=== PATIENT | male | born 1950 | race Caucasian/White ===

== ENCOUNTER → 2017-02-25 | Outpatient (CLI) | payer BC, OTHER ==
[~2017-02-25] MED LIST: ALLO100T PO; ASPI81TA85 PO; ATEN50TA2 PO; DYAZ37.5 PO; KETO50CA PO; PRIL20CA9 PO; PROZ40CA PO; ZOCO5TAB PO
[2017-02-25 10:13] LABS: MEAN CORPUSCULAR HEMOGLOBIN 28.2 pg (27.0-33.0); MEAN CORPUSCULAR HGB CONC 33.3 g/dl (32.0-36.5); MEAN CORPUSCULAR VOLUME 84.7 fl (80.0-96.0); PLATELET COUNT, AUTOMATED 212 10^3/uL (150-450); RED CELL DISTRIBUTION WIDTH 13.9 % (11.5-14.5); WHITE BLOOD COUNT 6.8 10^3/uL (4.0-10.0)
[2017-02-25 10:48] LABS: ALBUMIN/GLOBULIN RATIO 1.18 (1.00-1.93); ALKALINE PHOSPHATASE 93 U/L (45-117); ALT/SGPT 46 U/L (12-78); ANION GAP 9 MEQ/L (8-16); AST/SGOT 28 U/L (7-37); BILIRUBIN,TOTAL 0.7 MG/DL (0.2-1.0); BLOOD UREA NITROGEN 29 MG/DL (7-18); CALCIUM LEVEL 9.1 MG/DL (8.8-10.2); CARBON DIOXIDE LEVEL 31 MEQ/L (21-32); CHLORIDE LEVEL 99 MEQ/L (98-107); CHOLESTEROL LEVEL 166 MG/DL (<200); CREATININE FOR GFR 0.99 MG/DL (0.70-1.30); GLOMERULAR FILTRATION RATE > 60.0 (>49); GLUCOSE, FASTING 98 MG/DL (80-110); POTASSIUM SERUM 3.3 MEQ/L (3.5-5.1); SODIUM LEVEL 139 MEQ/L (136-145); TOTAL PROTEIN 7.4 GM/DL (6.4-8.2); TRIGLYCERIDES LEVEL 208 MG/DL (<150)
--- NOTE | 2017-02-25 11:11 | REP ---
PA and lateral chest: Comparison is 11/29/2015. The lung garcia are clear. The cardiac size is normal The cullen, mediastinum, and bony thorax are unremarkable. Impression: Negative PA and lateral chest. There is no interval change. Signed by Shiva Gavin MD 02/25/2017 11:03 A
--- NOTE | 2017-02-25 19:54 | ECGEPIP ---
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 Electronically Signed On 02-25-2017 19:53:59 EST by Jorgito Casillas
== END ==
LOC: M LAB 09:08
PROVIDERS: ATTEND Family Medicine
DX: I10 Essential (primary) hypertension (principal); N40.0 Benign prostatic hyperplasia without lower urinary tract symptoms

== ENCOUNTER → 2017-12-07 | Outpatient (CLI) | payer MEDICARE, BC, OTHER | LOC: M SLEEP 19:41 | DX: G47.33 Obstructive sleep apnea (adult) (pediatric) (principal) | CPT/HCPCS: 95810 ==

== ENCOUNTER → 2018-03-30 | Outpatient (CLI) | payer MEDICARE, BC, OTHER ==
--- NOTE | 2018-03-30 15:12 | REP ---
Chest two views HISTORY: Annual physical Comparison: 02/25/2017 The lungs are clear. The heart is normal in size. The pulmonary vasculature is normal in appearance. The bony structure is intact. IMPRESSION: No acute disease. Electronically Signed by Hussein Gomes MD 03/30/2018 03:04 P
[2018-03-30 15:16] LABS: HEMATOCRIT 45.8 % (42.0-52.0); HEMOGLOBIN 14.9 g/dl (13.5-17.5); MEAN CORPUSCULAR HEMOGLOBIN 28.1 pg (27.0-33.0); MEAN CORPUSCULAR HGB CONC 32.5 g/dl (32.0-36.5); MEAN CORPUSCULAR VOLUME 86.3 fl (80.0-96.0); PLATELET COUNT, AUTOMATED 206 10^3/uL (150-450); RED BLOOD COUNT 5.31 10^6/uL (4.30-6.10); WHITE BLOOD COUNT 7.9 10^3/uL (4.0-10.0)
[2018-03-30 15:37] LABS: HEMOGLOBIN A1c 5.1 %
[2018-03-30 15:47] LABS: ALBUMIN 4.2 GM/DL (3.2-5.2); ALT/SGPT 46 U/L (12-78); BILIRUBIN,TOTAL 0.5 MG/DL (0.2-1.0); BLOOD UREA NITROGEN 26 MG/DL (7-18); CALCIUM LEVEL 9.3 MG/DL (8.8-10.2); CARBON DIOXIDE LEVEL 32 MEQ/L (21-32); CHLORIDE LEVEL 98 MEQ/L (98-107); CHOLESTEROL LEVEL 187 MG/DL (<200); CHOLESTEROL RISK RATIO 2.428 (<5); CREATININE FOR GFR 1.08 MG/DL (0.70-1.30); GLOMERULAR FILTRATION RATE > 60.0 (>49); GLUCOSE, FASTING 100 MG/DL (70-100); HDL CHOLESTEROL 77 MG/DL (>40); LDL CHOLESTEROL 87 MG/DL (<100); NON-HDL-C 110 MG/DL; POTASSIUM SERUM 3.6 MEQ/L (3.5-5.1); PROSTATIC SPECIFIC AG MONITOR 1.19 NG/ML (< 4.00); SODIUM LEVEL 139 MEQ/L (136-145); TOTAL PROTEIN 7.4 GM/DL (6.4-8.2); TRIGLYCERIDES LEVEL 116 MG/DL (<150)
[2018-03-30 15:50] LABS: TESTOSTERONE 200 NG/DL (241-827); TOTAL 25(OH) VITAMIN D 43.6 NG/ML (30.0-100.0)
--- NOTE | 2018-03-31 08:50 | ECGEPIP ---
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
== END ==
LOC: M LAB 14:27
PROVIDERS: ATTEND Family Medicine
DX: Z00.00 Encounter for general adult medical examination without abnormal findings (principal); I10 Essential (primary) hypertension; N40.0 Benign prostatic hyperplasia without lower urinary tract symptoms; E03.9 Hypothyroidism, unspecified

== ENCOUNTER → 2019-04-05 | Outpatient (CLI) | payer MEDICARE, BC, OTHER ==
[2019-04-05 11:18] LABS: HEMATOCRIT 45.4 % (42.0-52.0); MEAN CORPUSCULAR HEMOGLOBIN 28.4 pg (27.0-33.0); PLATELET COUNT, AUTOMATED 181 10^3/uL (150-450); RED BLOOD COUNT 5.28 10^6/uL (4.30-6.10); WHITE BLOOD COUNT 6.9 10^3/uL (4.0-10.0)
--- NOTE | 2019-04-05 11:38 | REP ---
PA and lateral chest: Comparisons are 03/30/2018 and 11/29/2015. The lung garcia are clear. The cardiac size is normal. The cullen, mediastinum, and skeletal structures are unremarkable. Impression: Negative PA and lateral chest. There is no interval change. Electronically Signed by Shiva Gavin MD 04/05/2019 11:29 A
[2019-04-05 12:02] LABS: ALBUMIN 3.9 GM/DL (3.2-5.2); ALT/SGPT 38 U/L (12-78); BILIRUBIN,TOTAL 0.6 MG/DL (0.2-1.0); BLOOD UREA NITROGEN 16 MG/DL (7-18); CALCIUM LEVEL 8.7 MG/DL (8.8-10.2); CARBON DIOXIDE LEVEL 33 MEQ/L (21-32); CHLORIDE LEVEL 100 MEQ/L (98-107); CHOLESTEROL LEVEL 187 MG/DL (<200); CREATININE FOR GFR 0.98 MG/DL (0.70-1.30); GLOMERULAR FILTRATION RATE > 60.0 (>49); GLUCOSE, FASTING 93 MG/DL (70-100); HDL CHOLESTEROL 93 MG/DL (>40); LDL CHOLESTEROL 65 MG/DL (<100); NON-HDL-C 94 MG/DL; POTASSIUM SERUM 3.2 MEQ/L (3.5-5.1); PROSTATIC SPECIFIC AG MONITOR 1.21 NG/ML (< 4.00); SODIUM LEVEL 139 MEQ/L (136-145); TESTOSTERONE 345 NG/DL (241-827); TOTAL PROTEIN 6.8 GM/DL (6.4-8.2); TRIGLYCERIDES LEVEL 146 MG/DL (<150)
[2019-04-05 15:16] LABS: HEMOGLOBIN A1c 5.2 %
--- NOTE | 2019-04-06 06:56 | ECGEPIP ---
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
== END ==
LOC: M LAB 10:42
PROVIDERS: ATTEND Family Medicine
DX: I10 Essential (primary) hypertension (principal); R53.83 Other fatigue; E03.9 Hypothyroidism, unspecified

== ENCOUNTER → 2019-09-30 | Outpatient (CLI) | payer MEDICARE, BC, OTHER ==
[~2019-09-30] MED LIST changes: -ASPI81TA85 PO; +ASPI81TA86 PO; +MAPA500T2 PO; +SIMV40TA20 PO
== END ==
LOC: M LABSMTC 10:25
PROVIDERS: ATTEND Anesthesiology
DX: Z01.818 Encounter for other preprocedural examination (principal); Z11.59 Encounter for screening for other viral diseases
CPT/HCPCS: C9803; U0003

== ENCOUNTER 2019-10-05 07:36 | Day surgery (SDC) | payer MEDICARE, BC, OTHER ==
[~2019-10-05] VITALS: Ht 170.2 cm; Wt 72.5 kg
[~2019-10-05 07:36] MED LIST changes: +ASPI81TA85 PO; -ASPI81TA86 PO; +NS 1,000 ML IV ONE
[2019-10-05] MEDS ORDERED: LIDOCAINE 2% 100MG/5ML SDV (FOR ANES.) As Ordered ONE (08:22)
[2019-10-05] MEDS ORDERED: propofoL 200 MG/20 ML VIAL As Ordered ONE ×2 (08:22→09:03)
--- NOTE | 2019-10-05 08:51 | ROOR ---
Patient Name: Tucker Ahumada Procedure Date: 10/05/2019 8:36 AM Date of : 1950 Age: 69 Room: [facility] Gender: Male Note Status: Finalized Procedure: Upper Endoscopy + Biopsies Indications: Heartburn, Exclusion of Sanchez's esophagus Providers: Jayjay Khalil MD Referring MD: NANCY GUTIERREZ MD Requesting Provider: Medicines: Monitored Anesthesia Care Complications: No immediate complications. Procedure: Pre-Anesthesia Assessment: - The heart rate, respiratory rate, oxygen saturations, blood pressure, adequacy of pulmonary ventilation, and response to care were monitored throughout the procedure. The Endoscope was introduced through the mouth, and advanced to the second part of duodenum. The upper GI endoscopy was accomplished without difficulty. The patient tolerated the procedure well. Findings: The Z-line was regular and was found 40 cm from the incisors. Multiple biopsies were obtained with cold forceps for evaluation to rule out Sanchez's Esophagus randomly at the gastroesophageal junction. No other significant abnormalities were identified in a careful examination of the stomach. The exam of the duodenum was otherwise normal. Impression: - Z-line regular, 40 cm from the incisors. - Multiple biopsies were obtained at the gastroesophageal junction. - The examination was otherwise normal. Recommendation: - Patient has a contact number available for emergencies. The signs and symptoms of potential delayed complications were discussed with the patient. Return to normal activities tomorrow. Written discharge instructions were provided to the patient. - High fiber diet. - Discharge patient to home. - Follow an antireflux regimen. - Continue present medications. - Await pathology results. - Telephone GI clinic for pathology results in 1 week. - Return to referring physician. - The findings and recommendations were discussed with the patient. Jayjay Khalil MD Jayjay Khalil MD 10/05/2019 8:51:23 AM Electronically signed by Jayjay Khalil MD Number of Addenda: 0 Note Initiated On: 10/05/2019 8:36 AM Estimated Blood Loss: Estimated blood loss: none.
[2019-10-05] MEDS ORDERED: ePHEDrine SULFATE 25 MG/5 ML(5MG/ML) SYRINGE As Ordered ONE (09:00)
--- NOTE | 2019-10-05 09:06 | ROOR ---
Patient Name: Tucker Ahumada Procedure Date: 10/05/2019 8:36 AM Date of : 1950 Age: 69 Room: [facility] Gender: Male Note Status: Finalized Procedure: Total Colonoscopy to Cecum Indications: Screening for colorectal malignant neoplasm Providers: Jayjay Khalil MD Referring MD: NANCY GUTIERREZ MD Requesting Provider: Medicines: Monitored Anesthesia Care Complications: No immediate complications. Procedure: Pre-Anesthesia Assessment: - The heart rate, respiratory rate, oxygen saturations, blood pressure, adequacy of pulmonary ventilation, and response to care were monitored throughout the procedure. The Colonoscope was introduced through the anus and advanced to the cecum, identified by appendiceal orifice and ileocecal valve. The colonoscopy was performed without difficulty. The patient tolerated the procedure well. The quality of the bowel preparation was excellent. Findings: The perianal and digital rectal examinations were normal. Non-bleeding internal hemorrhoids were found during retroflexion. The hemorrhoids were small and Grade I (internal hemorrhoids that do not prolapse). Scattered small-mouthed diverticula were found in the recto-sigmoid colon, sigmoid colon and descending colon. The exam was otherwise without abnormality on direct and retroflexion views. Impression: - Non-bleeding internal hemorrhoids. - Diverticulosis in the recto-sigmoid colon, in the sigmoid colon and in the descending colon. - The examination was otherwise normal on direct and retroflexion views. - No specimens collected. - The exam was otherwise normal to the cecum. Recommendation: - Patient has a contact number available for emergencies. The signs and symptoms of potential delayed complications were discussed with the patient. Return to normal activities tomorrow. Written discharge instructions were provided to the patient. - High fiber diet. - Discharge patient to home. - Continue present medications. - Repeat colonoscopy in 10 years for screening purposes. - Return to referring physician. - The findings and recommendations were discussed with the patient. Jayjay Khalil MD Jayjay Khalil MD 10/05/2019 9:06:23 AM Electronically signed by Jayjay Khalil MD Number of Addenda: 0 Note Initiated On: 10/05/2019 8:36 AM Estimated Blood Loss: Estimated blood loss: none.
[2019-10-05 09:30] VITALS: BP 130/66
== END 2019-10-05 09:35 | disposition home or self-care (01) ==
LOC: M OPP 07:36
PROVIDERS: ATTEND Internal Medicine Gastroenterology
DX: Z12.11 Encounter for screening for malignant neoplasm of colon (principal); R12 Heartburn; K21.9 Gastro-esophageal reflux disease without esophagitis; I10 Essential (primary) hypertension; Z79.899 Other long term (current) drug therapy; Z87.891 Personal history of nicotine dependence; E78.00 Pure hypercholesterolemia, unspecified; J45.909 Unspecified asthma, uncomplicated; G47.30 Sleep apnea, unspecified; Z79.82 Long term (current) use of aspirin; F32.9 Major depressive disorder, single episode, unspecified; F41.9 Anxiety disorder, unspecified

== ENCOUNTER → 2024-10-25 | Outpatient (REF) | payer MEDICARE, OTHER ==
[~2024-10-25] MED LIST changes: -ASPI81TA85 PO; +ASPI81TA86 PO; -NS 1,000 ML IV ONE
== END ==
LOC: M LAB REF 17:44
PROVIDERS: ATTEND Internal Medicine
DX: M10.9 Gout, unspecified (principal)